=== PATIENT | male | born 1995 | race Caucasian/White ===

== ENCOUNTER 2023-07-09 11:59 | Day surgery (SDC) | payer OTHER, SELFPAY ==
--- NOTE | 2023-07-09 | MR_ITS ---
[address] [address] Patient Name: JOSE CRUZ ROLLINS MRN: [id number] date: 1995 Sex: M Assigned Patient Location: MRI Current Patient Location: MRI Accession/Order Number: [id number] Exam Date: 07/09/2023 13:30 Report Date: 07/09/2023 17:01 At the request of: ULISES ESPINAL Procedure: MR arthrogram knee EXAMINATION: MR arthrogram knee HISTORY: Internal derangement of right knee M23.91 COMPARISON: No relevant comparison available. TECHNIQUE: A complete multi-planar MRI was performed. Intra-articular contrast administered, see separate arthrogram report FINDINGS: MEDIAL COMPARTMENT MEDIAL MENISCUS: Increased signal in the posterior horn consistent with myxoid degeneration, but no kia tear. CARTILAGE: No visible defect. BONES: No marrow pathology, fracture, or significant arthropathy. MCL AND MEDIAL CAPSULE: Normal medial collateral ligament and medial capsule. LATERAL COMPARTMENT LATERAL MENISCUS: No visible tear or significant degeneration. CARTILAGE: No visible defect. BONES: No marrow pathology, fracture, or significant arthropathy. LCL/POSTEROLAT COMPLEX: Normal lateral collateral ligament, fascicles, lateral capsule and ligaments. ANTERIOR COMPARTMENT PATELLA: No marrow pathology, fracture, or significant arthropathy. CARTILAGE: No visible defect. TENDONS: Normal. EFFUSION: None. No synovitis or loose bodies. ACL: Mild increased signal along the distal tibial insertion PCL: Normal appearing ligament. MENISCOFEMORAL: Normal meniscofemoral ligaments. OTHER: Minimal subchondral signal changes intercondylar notch of the distal ACL insertion. 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
--- NOTE | 2023-07-09 | FL_ITS ---
[address] [address] Patient Name: JOSE CRUZ ROLLINS MRN: [id number] date: 1995 Sex: M Assigned Patient Location: MRI Current Patient Location: MRI Accession/Order Number: [id number] Exam Date: 07/09/2023 13:00 Report Date: 07/09/2023 14:24 At the request of: ULISES ESPINAL Procedure: FL knee inj RT PROCEDURE: FL knee inj RT COMPARISON: None. HISTORY: Internal derangement of right knee M23.91 FLUOROSCOPY TIME: Fluoro time measures 2 minutes and 2 images were obtained. TECHNIQUE: A joint injection was performed in the usual sterile manner after obtaining informed consent. Standard level fluoroscopic mode of operation utilized. FINDINGS: JOINT: Right knee. NEEDLE: 25 gauge, 2 inch needle. MEDICATION: 2mL buffered 1% lidocaine for subcutaneous anesthesia. 5 mL Omnipaque 300, 5 mL 1% lidocaine, 1 mL of Dotarem was injected into the joint space. TECHNIQUE: Lateral approach. Two sticks stick were successful in gaining access to the joint space. CLINICAL: 7 out of 10 pain before the procedure. 4 out of 10 pain following injection. COMPLICATIONS: None. OTHER: Negative. FL/FL knee inj RT IMPRESSION: Technically successful right knee arthrogram Electronically authenticated by: MARGOT CAMPBELL Date: 07/09/2023 14:24
== END 2023-07-09 13:30 | disposition home or self-care (01) ==
LOC: MRI 12:02
PROVIDERS: Radiology Diagnostic Radiology; Visit Provider Personal Emergency Response Attendant
DX: M23.91 Unspecified internal derangement of right knee (principal)
CPT/HCPCS: 20610; 27369; 73722; 77002; A9575; Q9967